=== PATIENT | male | born 1980 | race Caucasian/White ===

== ENCOUNTER 2018-09-24 11:08 | Day surgery (SDC) | payer OTHER ==
[~2018-09-24 11:08] MED LIST: CEFAZOLIN 1 GM INJ; CEFAZOLIN 2 GM/50 ML (PMX) 50 ML IVPB
[2018-09-24] MEDS: POLYMYXIN/BACITRACIN 1L IRRIG (11:53)
[2018-09-24] MEDS ORDERED: PROPOFOL 20 ML (12:31)
[2018-09-24] MEDS ORDERED: ROCURONIUM 50 MG INJ (12:31)
[2018-09-24] MEDS ORDERED: GLYCOPYRROLATE 0.4 MG INJ ×3 (12:31→12:54)
[2018-09-24] MEDS ORDERED: NEOSTIGMINE 3 MG/3 ML SYRINGE ×2 (12:31→12:53)
[2018-09-24] MEDS ORDERED: SUCCINYLCHOLINE CHLORIDE 100 MG/5 ML SYG IV (12:31)
[2018-09-24] MEDS ORDERED: LIDOCAINE 2% (SDV) 5 ML INJ (12:31)
[2018-09-24] MEDS ORDERED: MEPERIDINE 100 MG INJ (12:32)
[2018-09-24] MEDS: BUPIVACAINE 0.25% (MPF) 30 ML INJ (13:08)
[2018-09-24] MEDS ORDERED: ONDANSETRON 4 MG INJ IV (13:30)
[2018-09-24] MEDS ORDERED: OXYCODONE/ACETAMINOPHEN (5/325) TAB PO ×2 (13:30)
[2018-09-24] MEDS ORDERED: DIPHENHYDRAMINE 50 MG INJ IV (13:30)
[2018-09-24] MEDS ORDERED: METOCLOPRAMIDE 10 MG INJ IV (13:30)
[2018-09-24] MEDS ORDERED: FENTAnyl 50 MCG/ML VIAL IV ×2 (13:30)
[2018-09-24] MEDS ORDERED: MEPERIDINE 25 MG INJ IV (13:30)
[2018-09-24] MEDS ORDERED: HYDROmorphONE 1 MG/5 ML IV SYRINGE IV ×2 (13:30)
[2018-09-24] MEDS: HYDROmorphONE 1 MG/5 ML IV SYRINGE IV (15:27)
[2018-09-24] MEDS: FENTAnyl 50 MCG/ML VIAL IV (15:28)
[2018-09-24] MEDS: MIDAZOLAM 1 MG/ML 2 ML INJ IV (16:17)
== END 2018-09-24 20:40 | disposition home or self-care (01) ==
LOC: SDS 11:08
DX: K40.90 Unilateral inguinal hernia, without obstruction or gangrene, not specified as recurrent (principal); Z87.891 Personal history of nicotine dependence
CPT/HCPCS: 49650